=== PATIENT | female | born 1970 | race Caucasian/White ===

== ENCOUNTER → 2019-01-23 | Outpatient (CLI) | payer BC ==
[2005-01-16 07:10] VITALS: TEMP 97.5
[~2019-01-23] MED LIST: ZOFRAN 4MG T4 MG/TAB PO
== END ==
LOC: MC.RAD 14:23
DX: Z12.31 Encounter for screening mammogram for malignant neoplasm of breast (principal)

== ENCOUNTER → 2020-07-17 | Outpatient (CLI) | payer BC ==
[2005-01-16 07:10] VITALS: TEMP 97.5
== END ==
LOC: MC.RAD
DX: Z12.31 Encounter for screening mammogram for malignant neoplasm of breast (principal)

== ENCOUNTER → 2022-07-01 | Outpatient (CLI) | payer BC ==
[2005-01-16 07:10] VITALS: TEMP 97.5
== END ==
LOC: MC.RAD 08:21
DX: N63.10 Unspecified lump in the right breast, unspecified quadrant (principal)

== ENCOUNTER → 2023-09-20 | Outpatient (CLI) | payer BC ==
[2005-01-16 07:10] VITALS: PULSE 96; TEMP 97.5
== END ==
LOC: MC.RAD 17:00 → COL.RAD 17:00
DX: Z12.31 Encounter for screening mammogram for malignant neoplasm of breast (principal)